=== PATIENT | male | born 1950 | race Caucasian/White ===

== ENCOUNTER 2017-10-07 21:00 | Inpatient (IN) ==
[2017-10-07] MEDS ORDERED: Acetaminophen 325 MG Tablet PO PRN (22:49)
[2017-10-07] MEDS ORDERED: Aluminum/Magnesium/Simethacone Susp 30 ML UDC PO PRN (22:49)
[2017-10-07] MEDS ORDERED: LORazepam 0.5 MG Tablet PO PRN (22:49)
[2017-10-08] MEDS ORDERED: Aluminum/Magnesium/Simethacone Susp 30 ML UDC PO PRN (15:44)
[2017-10-08] MEDS ORDERED: Bisacodyl 10 MG Supp RECTAL PRN (15:44)
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
[2017-10-08 18:06] VITALS: RESP 18
[2017-10-08] MEDS: Senna/Docusate Sodium 8.6/50 MG Tablet PO SCH (20:41)
[2017-10-09 05:39] VITALS: BP 145/80; PULSE 72; TEMP 97.4; O2SAT 96
[2017-10-09] MEDS: Senna/Docusate Sodium 8.6/50 MG Tablet PO SCH (09:28)
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
== END 2017-10-09 15:06 | disposition home or self-care (01) ==
LOC: H260 22:30
PROVIDERS: ADMIT Psychiatry & Neurology Psychiatry; ATTEND Psychiatry & Neurology Psychiatry